=== PATIENT | male | born 1970 | race Caucasian/White ===

== ENCOUNTER → 2019-11-02 09:01 | Outpatient (CLI) | payer OTHER, SELFPAY ==
--- NOTE | 2019-11-02 | DI.ECHO.S_ITS ---
[facility]---------+ [facility] +---------+ : : [address] : [address] : : : : [id number] : : : : Phone: [phone]+ Echocardiogram Report + + :Name: ELEANOR BROWN Study Date: 11/02/2019 Height: 72 in : :[facility] Weight: 196 lb : : Gender: Male BSA: 2.1 m2 : :: 1970 Age: 48 yrs BP: 110/76 mmHg: :Reason For Study: SYNCOPE : : Performed By: Rola David : :Referring: HERMINIA SHERIFF : + + Interpretation Summary Normal sinus rhythm. Normal LV size, wall thickness, wall motion and LV systolic function. EF is 60-65%. Normal chamber sizes. No significant valvular abnormalities. No etiology of syncope identified. There is no prior study available for comparison. Procedure: A two-dimensional transthoracic echocardiogram with color flow and Doppler was performed. The study quality was technically adequate. There is no prior echocardiogram noted for this patient. The patient was in normal sinus rhythm during the exam. Left Ventricle: The left ventricle is normal in size and wall thickness. The ejection fraction is estimated to be 60-65%. Left ventricular wall motion is normal. Right Ventricle: The right ventricle is normal in size and function. Atria: Both atria are normal in size. The interatrial septum is intact with no evidence for an atrial septal defect. Mitral Valve: The mitral valve is normal in structure and function. There is mild mitral regurgitation. Aortic Valve: The aortic valve is trileaflet. The aortic valve opens well. There is no aortic valve stenosis. No aortic regurgitation is present. Tricuspid Valve: The tricuspid valve is normal in structure and function. The right ventricular systolic pressure is estimated to be at least 18 mmHg based on an estimated right atrial pressure of 3 mm Hg. There is mild tricuspid regurgitation. Pulmonic Valve: The pulmonic valve is normal in structure and function. There is mild pulmonic regurgitation. Great Vessels: The aortic root is normal size. The dimensions of the ascending aorta are normal. The IVC is of normal diameter and collapses greater than 50% with a sniff. This suggests a low right atrial pressure of 3 mm Hg. Pericardium/ Pleura There is no pericardial effusion. There is no pleural effusion. MMode/2D Measurements & Calculations LVIDd: 5.2 cm LVOT diam: 2.2 cm LVIDs: 3.4 cm Ao root diam: 3.6 cm FS: 35.1 % asc Aorta Diam: 3.0 cm EPSS: 0.78 cm Ao Arch Diam (Prox Trans): 3.3 cm IVSd: 1.0 cm LVPWd: 1.1 cm LV martinez. diameter/BSA (cm/m^2): 2.5 LV sys. diameter/BSA (cm/m^2): 1.6 LA A2 area: 14.4 cm2 RA long axis: 4.4 cm LA A4 area: 16.0 cm2 RA area: 13.9 cm2 LA length (vol): 5.2 cm RA vol: 37.7 ml LA vol: 37.6 ml RA : 17.8 ml/m2 LA vol index: 17.8 ml/m2 RVD1 (basal): 3.5 cm TAPSE: 1.9 cm Doppler Measurements & Calculations Ao V2 max: 108.2 cm/sec LVOT Max Elver: 85.8 cm/sec Ao V2 mean: 74.1 cm/sec LV V1 max P.9 mmHg Ao max P.7 mmHg LV V1 VTI: 16.2 cm Ao mean P.5 mmHg KRISTA(I,D): 2.8 cm2 Ao V2 VTI: 22.6 cm KRISTA(V,D): 3.1 cm2 sev ratio: 0.72 KRISTA indexed to BSA (cm^2/m^2): 1.3 MV E max elver: 68.4 cm/sec TR max elver: 181.8 cm/sec MV A max elver: 52.2 cm/sec TR max P.2 mmHg MV E/A: 1.3 PA V2 max: 67.7 cm/sec Med Peak E' Elver: 6.3 cm/sec PA V2 mean: 45.1 cm/sec E/E' med: 10.8 PA mean P.93 mmHg Lat Peak E' Elver: 8.1 cm/sec PA Accel Time: 0.15 sec E/E' lat: 8.4 E/e' average: 9.6 MV dec time: 0.16 sec SV(LVOT): 62.5 ml Electronically signed by: Amelia Rasmussen M.D. on Reading Physician:11/03/2019 05:49 AM
== END ==
PROVIDERS: Referring Provider Physician Assistant; Visit Provider Physician Assistant
DX: I08.1 Rheumatic disorders of both mitral and tricuspid valves (principal); R55 Syncope and collapse
CPT/HCPCS: 93306